=== PATIENT | male | born 1980 | race Caucasian/White ===

== ENCOUNTER 2016-07-19 09:22 | Emergency (ER) | payer BC ==
[2016-07-19] MEDS ORDERED: Sodium Chloride 0.9% 1,000 ML IV SCH (09:45)
--- NOTE | 2016-07-19 09:53 | EDM.PDOC ---
<Yashira Mcfadden - Last Filed: 07/19/16 10:21> ED HPI GI/ABDOMINAL - General Chief Complaint: Abdominal Pain Stated Complaint: STOMACK PAINS ON THE SIDE Time Seen by Provider: 07/19/16 09:38 Source of Information: Reports: Patient History Limitations: Reports: No limitations - History of Present Illness INITIAL COMMENTS - FREE TEXT/NARRATIVE: Bart is a 36 year old male that presents to the ED today with complaints of pain in the left lower quadrant that started 3 days ago and has progressively gotten worse over the last night. According to patient pain is sharp and does not radiate to his back. Pain is worse with movements at times. Rates pain as 3/ 10 laying down in ED at the moment, and 8/10 at its worse. Patient voices has had normal bowel movements and passing gas without difficulty. He voices moves his bowels daily sometimes 2 times daily. Denies nausea and vomiting. Denies fever or chills. Denies urinary complaints, urgency, frequency, burning, and penile discharge. Denies blood in stool or urine. Denies any recent injury or lifting anything heavy. Symptom Onset Date: 07/17/16 Timing/Duration: Reports: Getting worse, Gradual onset Location: LLQ Quality: Reports: other (stabbing pain 3/10 now) Associated Symptoms: Denies: chest pain, back pain, groin pain, constipation, diarrhea, bloody stools, fever/chills, loss of appetite, malaise, nausea/ vomiting - Related Data Allergies/ADRs: Allergies Allergy/AdvReac Type Severity Reaction Status Date / Time Penicillins Allergy Hives Verified 07/19/16 09:32 Home Meds: Home Meds . [No Known Home Meds] 10/03/14 [History] Past Medical History - Past Health History Medical/Surgical History: Denies Medical/Surgical History Social & Family History - Tobacco Use Smoking Status *Q: Never Smoker Second Hand Smoke Exposure: No - Caffeine Use Caffeine Use: Reports: Coffee - Alcohol Use Days Per Week of Alcohol Use: 2 Number of Drinks Per Day: 3 Total Drinks Per Week: 6 - Recreational Drug Use Recreational Drug Use: No ED ROS GENERAL - Review of Systems Review Of Systems: ROS reveals no pertinent complaints other than HPI. ED EXAM, GI/ABD - Physical Exam Exam: See Below Exam Limited By: No limitations General Appearance: alert, WD/WN, no apparent distress Ears: normal external exam, hearing grossly normal Nose: normal inspection Throat/Mouth: Normal inspection, Normal lips, Normal teeth, Normal gums, Normal oropharynx, Normal voice, No airway compromise Head: atraumatic, normocephalic Neck: normal inspection, full range of motion Respiratory/Chest: no respiratory distress, lungs clear, normal breath sounds, no accessory muscle use, chest non-tender Cardiovascular: normal peripheral pulses, regular rate, rhythm, no JVD GI/Abdominal: normal bowel sounds, soft, no organomegaly, no distention, no mass , guarding (to LLQ), other (tender to palpation in LLQ) (Male) Exam: No hernia, Normal inspection, Circumcised. No: Rash, Scrotal swelling, Scrotum tenderness (L), Scrotum tenderness (R), Testicular tenderness (L), Testicular tenderness (R), Urethral discharge Rectal (Males) Exam: Deferred Back Exam: normal inspection, full range of motion Extremities: normal inspection Neurological: alert, oriented, normal cognition, normal gait Psychiatric: normal affect, normal mood Skin Exam: Warm, Dry, Intact, Normal color, No rash Lymphatic: no adenopathy Course - Vital Signs Last Recorded V/S: Last Vital Signs Temp 36.2 C 07/19/16 09:31 Pulse 85 07/19/16 09:31 Resp 16 07/19/16 09:31 BP 117/83 07/19/16 09:31 Pulse Ox 96 07/19/16 09:31 - Orders/Labs/Meds Orders: Active Orders 24 hr Category Date Time Status Abdomen Pelvis wo Cont [CT] Stat Exams 07/19/16 10:20 Taken Sodium Chloride 0.9% [Normal Saline] 1,000 ml Med 07/19/16 09:45 Active IV ASDIRECTED Medication Orders Sodium Chloride (Normal Saline) 1,000 mls @ 999 mls/hr IV ASDIRECTED DARRICK Last Admin: 07/19/16 09:50 Dose: 999 mls/hr Labs: Laboratory Tests 07/19/16 07/19/16 07/19/16 Range/Units 09:47 09:47 09:55 WBC 6.72 (4.0-11.0) K/uL RBC 5.35 (4.50-5.90) M/uL Hgb 15.6 (13.0-17.0) g/dL Hct 47.0 (38.0-50.0) % MCV 87.9 (80.0-98.0) fL MCH 29.2 (27.0-32.0) pg MCHC 33.2 (31.0-37.0) g/dL RDW Std Deviation 41.4 (28.0-62.0) fl RDW Coeff of Clemente 13 (11.0-15.0) % Plt Count 168 (150-400) K/uL MPV 12.70 H (7.40-12.00) fL Neut % (Auto) 53.3 (48.0-80.0) % Lymph % (Auto) 29.5 (16.0-40.0) % [place] % (Auto) 10.6 (0.0-15.0) % Eos % (Auto) 6.0 (0.0-7.0) % Baso % (Auto) 0.6 (0.0-1.5) % Neut # 3.6 (1.4-5.7) K/uL Lymph # 2.0 (0.6-2.4) K/uL [place] # 0.7 (0.0-0.8) K/uL Eos # 0.4 (0.0-0.7) K/uL Baso # 0.0 (0.0-0.1) K/uL Nucleated RBC % 0.0 /100WBC Nucleated RBCs # 0 K/uL Sodium 140 (136-146) mmol/L Potassium 4.6 (3.5-5.1) mmol/L Chloride 109 (98-110) mmol/L Carbon Dioxide 22 (21-31) mmol/L BUN 18 (6.0-23.0) mg/dL Creatinine 1.1 (0.6-1.5) mg/dL Est Cr Clr Drug Dosing 103.86 mL/min Estimated GFR (MDRD) > 60.0 ml/min Glucose 107 (60-110) mg/dL Calcium 9.2 (8.8-10.8) mg/dL Total Bilirubin 0.6 (0.1-1.5) mg/dL AST 21 (5-40) IU/L ALT 36 (8-54) IU/L Alkaline Phosphatase 99 (40-150) Total Protein 7.5 (6.0-8.0) g/dL Albumin 4.4 (3.5-5.0) g/dL Globulin 3.1 (2.0-3.5) g/dL Albumin/Globulin Ratio 1.4 (1.3-2.8) Amylase 101 H (10-90) U/L Lipase 18 (7-80) U/L Urine Color YELLOW Urine Appearance CLEAR Urine pH 6.0 (5.0-8.0) Ur Specific [place] >= 1.030 (1.001-1.035) Urine Protein NEGATIVE (NEGATIVE) mg/dL Urine Glucose (UA) NEGATIVE (NEGATIVE) mg/dL Urine Ketones NEGATIVE (NEGATIVE) mg/dL Urine Occult Blood NEGATIVE (NEGATIVE) Urine Nitrite NEGATIVE (NEGATIVE) Urine Bilirubin NEGATIVE (NEGATIVE) Urine Urobilinogen 0.2 (<2.0) EU/dL Ur Leukocyte Esterase NEGATIVE (NEGATIVE) Urine RBC NONE SEEN (0-2/HPF) Urine WBC NONE SEEN (0-5/HPF) Ur Epithelial Cells RARE (NONE-FEW) Urine Bacteria NOT SEEN (NEGATIVE) Meds: Medications Generic Name Dose Route Start Last Admin Trade Name Freq PRN Reason Stop Dose Admin Sodium Chloride 1,000 mls @ 999 mls/hr 07/19/16 09:45 07/19/16 09:50 Normal Saline IV 999 mls/hr ASDIRECTED DARRICK Administration Departure - Departure Disposition: Home, Self-Care 01 Clinical Impression: Epiploic appendagitis Forms: ED Department Discharge Additional Instructions: Cipro 500 by mouth twice a day #20 no refill Return if symptoms persist or worsen or new concerning symptomatology develops Followup with primary care in 2 weeks [facility] [address] [place] [address] The following information is given to patients seen in the emergency department who are being discharged to home. This information is to outline your options for follow-up care. We provide all patients seen in our emergency department with a follow-up referral. The need for follow-up, as well as the timing and circumstances, are variable depending upon the specifics of your emergency department visit. If you don't have a primary care physician on staff, we will provide you with a referral. We always advise you to contact your personal physician following an emergency department visit to inform them of the circumstance of the visit and for follow-up with them and/or the need for any referrals to a consulting specialist. The emergency department will also refer you to a specialist when appropriate. This referral assures that you have the opportunity for follow-up care with a specialist. All of these measure are taken in an effort to provide you with optimal care, which includes your follow-up. Under all circumstances we always encourage you to contact your private physician who remains a resource for coordinating your care. When calling for follow-up care, please make the office aware that this follow-up is from your recent emergency room visit. If for any reason you are refused follow-up, please contact the [facility] emergency department at and asked to speak to the emergency department charge nurse. - My Orders Last 24 Hours: My Active Orders 07/19/16 10:20 Abdomen Pelvis wo Cont [CT] Stat - Assessment/Plan Last 24 Hours: My Active Orders 07/19/16 10:20 Abdomen Pelvis wo Cont [CT] Stat <Edson Multani - Last Filed: 07/19/16 11:27> ED HPI GI/ABDOMINAL - History of Present Illness INITIAL COMMENTS - FREE TEXT/NARRATIVE: i have seen and examined the patient agree with above Assessment epiploic appendage diabetes versus mild diverticulitis Plan Cipro 500 by mouth twice a day #20 no refill Return if symptoms persist or worsen or new concerning symptomatology develops Followup with primary care in 2 weeks Departure - Departure Time of Disposition: 11:26 Condition: good
[2016-07-19 10:14] LABS: CHLORIDE,CL 109 mmol/L (98-110); SODIUM,NA 140 mmol/L (136-146)
[2016-07-19 11:50] VITALS: BP 116/85
--- NOTE | 2016-07-21 17:26 | CT ---
EXAM DATE: 07/19/16 PATIENT'S AGE: 36 Patient: JADA GILMA Facility: [place], [place] Site . Site : 1980 Study: CT Abdomen/Pelvis [id number]/4/2017 10:50:27 AM Ordering Physician: Doctor Ahuja Final Report: HISTORY: Left-sided abdominal pain. TECHNIQUE: Noncontrast CT of the abdomen and pelvis. COMPARISON: No prior. FINDINGS: There is no focal liver parenchymal abnormality. Gallbladder does not appear overly distended. Spleen size within normal limits. Adrenal glands are normal. No focal pancreatic abnormality or peripancreatic inflammatory change. There is no hydronephrosis. No obstructive urinary calculus. No renal mass. Minor perinephric stranding. Urinary bladder is not well distended and not well evaluated by CT. . No small bowel obstruction. There is a circumscribed fat attenuation lesion within the left anterior upper pelvis, anterior to the distal descending- proximal sigmoid colonic junction as seen on image #107. There is mild adjacent haziness of fat. This may indicate self limiting process such as epiploic appendagitis or an area of segmental omental inflammation. There is no diverticulitis. No appendicitis. No abdominal pelvic fluid collection. No free air. No aortic aneurysm. No technically enlarged abdominal lymph nodes. Prior umbilical hernia repair. . The 10 mm mildly sclerotic lesion involving the left iliac bone on image #115 of series 201 is nonspecific. As an isolated finding this is more likely benign. . 4 mm right lower lobe pulmonary nodule image #15. 4 mm right lower lobe pulmonary nodule image #14. 3 mm left lower lobe pulmonary nodule image #1. There are few additional subpleural nodules. IMPRESSION: 1. Circumscribed fat attenuation lesion within the left anterior upper pelvis, anterior to the distal descending-proximal sigmoid colonic junction, with mild adjacent haziness of fat. This may indicate self limiting process such as epiploic appendagitis or an area of segmental omental inflammation. 2. No diverticulitis or appendicitis. 3. Prior umbilical hernia repair. 4. Several nodules within the lung bases. Recommend followup chest CT in 6 months. Dictated by Aleksandar Draper MD @ 07/19/2016 11:18:44 AM Dictated by: Aleksandar Draper MD @ 07/19/2016 11:18:51 (Electronic Signature) Report Signed by Proxy and Original Signed Document filed in the Medical Record. LAQUITA
== END 2016-07-19 11:45 | disposition home or self-care (01) ==
LOC: MW.ED 09:22
DX: K63.89 Other specified diseases of intestine (principal); Z88.0 Allergy status to penicillin
CPT/HCPCS: 36415; 74176; 80053; 81001; 82150; 83690; 85025; 96360; 99284; J7040; 99283

== ENCOUNTER 2017-06-07 20:23 | Emergency (ER) | payer BC ==
[2017-06-07] MEDS ORDERED: Albuterol/Ipratropium 3.0-0.5 MG/3 ML Neb Soln NEB ONE (22:03)
[2017-06-07] MEDS ORDERED: Levofloxacin 500 MG Tab PO ONE (22:04)
--- NOTE | 2017-06-07 22:13 | EDM.PDOC ---
ED HPI GENERAL MEDICAL PROBLEM - General Chief Complaint: General Stated Complaint: FLU LIKE Time Seen by Provider: 06/07/17 22:11 Source of Information: Reports: Patient - History of Present Illness INITIAL COMMENTS - FREE TEXT/NARRATIVE: HISTORY AND PHYSICAL: History of present illness: Patient presents with fever and general malaise since yesterday noon he's been coughing for 1-2 weeks prior No nausea vomiting chills sweats no chest pain shortness breath headache dizziness or palpitation no bowel or urine symptoms Review of systems: As per history of present illness and below otherwise all systems reviewed and negative. Past medical history: As per history of present illness and as reviewed below otherwise noncontributory. Surgical history: As per history of present illness and as reviewed below otherwise noncontributory. Social history: No reported history of drug or alcohol abuse. Family history: As per history of present illness and as reviewed below otherwise noncontributory. Physical exam: HEENT: Atraumatic, normocephalic, pupils reactive, negative for conjunctival pallor or scleral icterus, mucous membranes moist, throat clear, neck supple, nontender, trachea midline. Lungs: Clear to auscultation, breath sounds equal bilaterally, chest nontender. Heart: S1S2, regular, negative for clicks, rubs, or JVD. Abdomen: Soft, nondistended, nontender. Negative for masses or hepatosplenomegaly. Negative for costovertebral tenderness. Pelvis: Stable nontender. Genitourinary: Deferred. Rectal: Deferred. Extremities: Atraumatic, negative for cords or calf pain. Neurovascular unremarkable. Neuro: Awake, alert, oriented. Cranial nerves II through XII unremarkable. Cerebellum unremarkable. Motor and sensory unremarkable throughout. Exam nonfocal. Diagnostics: [Chest 2 views Influenza/strep ] Therapeutics: [DuoNeb Levaquin 500 mg by mouth now Levaquin 500 mg by mouth daily #10 no refill ProAir HFA 48 hours off work Return if symptoms persist or worsen Rest fluids nutrition ] Impression: [Pneumonia] Definitive disposition and diagnosis as appropriate pending reevaluation and review of above. Headache Pain Score (Numeric/FACES): 7 - Related Data Allergies Allergy/AdvReac Type Severity Reaction Status Date / Time Penicillins Allergy Hives Verified 06/07/17 20:40 Home Meds: Home Meds . [No Known Home Meds] 10/03/14 [History] Past Medical History - Past Health History Medical/Surgical History: Denies Medical/Surgical History Social & Family History - Tobacco Use Smoking Status *Q: Never Smoker Second Hand Smoke Exposure: No - Caffeine Use Caffeine Use: Reports: None - Alcohol Use Days Per Week of Alcohol Use: 2 Number of Drinks Per Day: 3 Total Drinks Per Week: 6 - Recreational Drug Use Recreational Drug Use: No ED ROS GENERAL - Review of Systems Review Of Systems: ROS reveals no pertinent complaints other than HPI. ED EXAM, GENERAL - Physical Exam Exam: See Below Course - Vital Signs Last Recorded V/S: Last Vital Signs Temp 104.4 F H 06/07/17 20:39 Pulse 115 H 06/07/17 20:39 Resp 18 06/07/17 20:39 BP 132/83 06/07/17 20:39 Pulse Ox 95 06/07/17 20:39 - Orders/Labs/Meds Orders: Active Orders 24 hr Category Date Time Status RT Aerosol Therapy [RC] ASDIRECTED Care 06/07/17 22:04 Active Chest 2V [CR] Stat Exams 06/07/17 20:40 Taken CULTURE STREP A CONFIRMATION [RM] Stat Lab 06/07/17 20:58 Results STREP SCRN A RAPID W CULT CONF [RM] Stat Lab 06/07/17 20:58 Results Meds: Medications Discontinued Medications Generic Name Dose Route Start Last Admin Trade Name Lopez PRN Reason Stop Dose Admin Albuterol/Ipratropium 3 ml 06/07/17 22:03 Duoneb 3.0-0.5 Mg/3 Ml NEB 06/07/17 22:04 ONETIME ONE Levofloxacin 500 mg 06/07/17 22:04 Levaquin PO 06/07/17 22:05 ONETIME ONE Departure - Departure Time of Disposition: 22:12 Disposition: Home, Self-Care 01 Condition: Good Clinical Impression: Pneumonia - Discharge Information Referrals: PCP,None [Primary Care Provider] - Additional Instructions: Medication as prescribed Return if symptoms persist or worsen or new concerning symptoms develop 48 hours off work for rest fluids nutrition With primary care in 2 weeks sooner as needed [facility] - Primary Care [address] [place] [id number] The following information is given to patients seen in the emergency department who are being discharged to home. This information is to outline your options for follow-up care. We provide all patients seen in our emergency department with a follow-up referral. The need for follow-up, as well as the timing and circumstances, are variable depending upon the specifics of your emergency department visit. If you don't have a primary care physician on staff, we will provide you with a referral. We always advise you to contact your personal physician following an emergency department visit to inform them of the circumstance of the visit and for follow-up with them and/or the need for any referrals to a consulting specialist. The emergency department will also refer you to a specialist when appropriate. This referral assures that you have the opportunity for follow-up care with a specialist. All of these measure are taken in an effort to provide you with optimal care, which includes your follow-up. Under all circumstances we always encourage you to contact your private physician who remains a resource for coordinating your care. When calling for follow-up care, please make the office aware that this follow-up is from your recent emergency room visit. If for any reason you are refused follow-up, please contact the [facility] emergency department at and asked to speak to the emergency department charge nurse. - My Orders Last 24 Hours: My Active Orders 06/07/17 20:40 Chest 2V [CR] Stat 06/07/17 20:58 CULTURE STREP A CONFIRMATION [RM] Stat STREP SCRN A RAPID W CULT CONF [RM] Stat 06/07/17 22:04 RT Aerosol Therapy [RC] ASDIRECTED - Assessment/Plan Last 24 Hours: My Active Orders 06/07/17 20:40 Chest 2V [CR] Stat 06/07/17 20:58 CULTURE STREP A CONFIRMATION [RM] Stat STREP SCRN A RAPID W CULT CONF [RM] Stat 06/07/17 22:04 RT Aerosol Therapy [RC] ASDIRECTED
[2017-06-08 02:00] VITALS: BP 127/79
--- NOTE | 2017-06-08 19:40 | CR ---
EXAM DATE: 06/07/17 PATIENT'S AGE: 37 Patient: TAVISH GILMA Facility: [place], [place] Site . Site : 1980 Study: XRay Chest [id number]/21/2018 9:52:42 PM Ordering Physician: Chen Sandhu Final Report: INDICATION: Pain. Short of breath. TECHNIQUE: PA and lateral views of the chest. COMPARISON: None. FINDINGS: Cardiac, mediastinal and hilar contours appear normal. Normal pulmonary vasculature. There are patchy left basilar airspace opacities concerning for pneumonia. No pleural fluid or pneumothorax. IMPRESSION: Left basilar airspace opacities, concerning for pneumonia. Dictated by Aniket Phoenix MD @ 06/07/2017 9:58:53 PM Dictated by: Aniket Phoenix MD @ 06/07/2017 21:58:58 (Electronic Signature) Report Signed by Proxy. LAQUITA
== END 2017-06-07 22:29 | disposition home or self-care (01) ==
LOC: MW.ED 20:23
DX: J18.9 Pneumonia, unspecified organism (principal); Z88.0 Allergy status to penicillin
CPT/HCPCS: 71046; 87081; 87804; 87880; 94640; 99284; A9270; 99283

== ENCOUNTER 2017-06-08 17:34 | Emergency (ER) | payer BC ==
--- NOTE | 2017-06-08 17:52 | EDM.PDOC ---
ED HPI GENERAL MEDICAL PROBLEM - General Chief Complaint: Respiratory Problem Stated Complaint: HEADACHE/PNEUMONIA Time Seen by Provider: 06/08/17 17:46 - History of Present Illness INITIAL COMMENTS - FREE TEXT/NARRATIVE: HISTORY AND PHYSICAL: History of present illness: Patient 37-year-old male was diagnosed yesterday with pneumonia presents now with headache he's taking Motrin with no improvement he denies vomiting diarrhea denies numbness weakness visual disturbance denies trauma neck pain or stiffness or other concern Review of systems: As per history of present illness and below otherwise all systems reviewed and negative. Past medical history: As per history of present illness and as reviewed below otherwise noncontributory. Surgical history: As per history of present illness and as reviewed below otherwise noncontributory. Social history: No reported history of drug or alcohol abuse. Family history: As per history of present illness and as reviewed below otherwise noncontributory. Physical exam: HEENT: Atraumatic, normocephalic, pupils reactive, negative for conjunctival pallor or scleral icterus, mucous membranes moist, throat clear, neck supple, nontender, trachea midline. Lungs: Coarse, breath sounds equal bilaterally, chest nontender. Heart: S1S2, regular, negative for clicks, rubs, or JVD. Abdomen: Soft, nondistended, nontender. Negative for masses or hepatosplenomegaly. Negative for costovertebral tenderness. Pelvis: Stable nontender. Genitourinary: Deferred. Rectal: Deferred. Extremities: Atraumatic, negative for cords or calf pain. Neurovascular unremarkable. Neuro: Awake, alert, oriented. Cranial nerves II through XII unremarkable. Cerebellum unremarkable. Motor and sensory unremarkable throughout. Exam nonfocal. Diagnostics: CT brain Therapeutics: Toradol 60 mg IM Impression: #1 Pneumonia #2 cephalgia Definitive disposition and diagnosis as appropriate pending reevaluation and review of above. - Related Data Allergies Allergy/AdvReac Type Severity Reaction Status Date / Time Penicillins Allergy Hives Verified 06/08/17 17:48 Home Meds: Home Meds . [No Known Home Meds] 10/03/14 [History] Past Medical History - Past Health History Medical/Surgical History: Denies Medical/Surgical History Social & Family History - Tobacco Use Smoking Status *Q: Never Smoker Second Hand Smoke Exposure: No - Caffeine Use Caffeine Use: Reports: None - Alcohol Use Days Per Week of Alcohol Use: 2 Number of Drinks Per Day: 3 Total Drinks Per Week: 6 - Recreational Drug Use Recreational Drug Use: No ED ROS GENERAL - Review of Systems Review Of Systems: ROS reveals no pertinent complaints other than HPI. ED EXAM, GENERAL - Physical Exam Exam: See Below (See dictation) Course - Vital Signs Last Recorded V/S: Last Vital Signs Temp 37.7 C 06/08/17 17:49 Pulse 108 H 06/08/17 17:49 Resp 18 06/08/17 17:49 BP 119/87 06/08/17 17:49 Pulse Ox 94 L 06/08/17 17:49 - Orders/Labs/Meds Orders: Active Orders 24 hr Category Date Time Status Head wo Cont [CT] Stat Exams 06/08/17 17:56 Taken Meds: Medications Discontinued Medications Generic Name Dose Route Start Last Admin Trade Name Freq PRN Reason Stop Dose Admin Ketorolac Tromethamine 60 mg 06/08/17 18:39 06/08/17 18:43 Toradol IM 06/08/17 18:40 60 mg ONETIME ONE Administration Departure - Departure Time of Disposition: 18:53 Disposition: Home, Self-Care 01 Condition: Good Clinical Impression: Pneumonia, Cephalgia - Discharge Information Referrals: PCP,None [Primary Care Provider] - Forms: ED Department Discharge Additional Instructions: The following information is given to patients seen in the emergency department who are being discharged to home. This information is to outline your options for follow-up care. We provide all patients seen in our emergency department with a follow-up referral. The need for follow-up, as well as the timing and circumstances, are variable depending upon the specifics of your emergency department visit. If you don't have a primary care physician on staff, we will provide you with a referral. We always advise you to contact your personal physician following an emergency department visit to inform them of the circumstance of the visit and for follow-up with them and/or the need for any referrals to a consulting specialist. The emergency department will also refer you to a specialist when appropriate. This referral assures that you have the opportunity for followup care with a specialist. All of these measure are taken in an effort to provide you with optimal care, which includes your followup. Under all circumstances we always encourage you to contact your private physician who remains a resource for coordinating your care. When calling for followup care, please make the office aware that this follow-up is from your recent emergency room visit. If for any reason you are refused follow-up, please contact the [facility] emergency department at and asked to speak to the emergency department charge nurse. The new current meds follow-up by the medical doctor as needed as discussed and return as needed as discussed - My Orders Last 24 Hours: My Active Orders 06/08/17 17:56 Head wo Cont [CT] Stat - Assessment/Plan Last 24 Hours: My Active Orders 06/08/17 17:56 Head wo Cont [CT] Stat
[2017-06-08] MEDS ORDERED: Ketorolac 60 MG/2 ML SDV IM ONE (18:39)
[2017-06-08 19:07] VITALS: BP 109/85
--- NOTE | 2017-06-09 14:25 | CT ---
EXAM DATE: 06/08/17 PATIENT'S AGE: 37 Patient: JADA DILLARD Facility: [place] [place] Site . Site : 1980 Study: CT Head [id number]/22/2018 6:14:32 PM Ordering Physician: Queenie Rao Final Report: INDICATION: Headache. TECHNIQUE: CT head without i.v. contrast. COMPARISON: None FINDINGS: CSF spaces: Within normal limits for age. Brain parenchyma: The brain parenchyma is normal in appearance with preservation of the bermudez-white differentiation. No sign of mass, hemorrhage, or midline shift seen. Skull base and calvarium: The visualized paranasal sinuses are well aerated. The mastoid air cells are clear. The visualized orbits are grossly unremarkable. No skull fractures are seen. IMPRESSION: 1. No evidence of acute infarction, intracranial hemorrhage, or mass effect seen. Dictated by Chiki Rios MD @ 06/08/2017 6:38:19 PM Dictated by: Chiki Rios MD @ 06/08/2017 18:38:49 (Electronic Signature) Report Signed by Proxy. [facility]OSPITALAurea
== END 2017-06-08 19:05 | disposition home or self-care (01) ==
LOC: MW.ED 17:34
DX: J18.9 Pneumonia, unspecified organism (principal); R51 Headache; Z88.0 Allergy status to penicillin
CPT/HCPCS: 70450; 96372; 99284; J1885; 99283

== ENCOUNTER 2018-11-26 19:27 | Emergency (ER) | payer BC ==
[2018-11-26 19:43] VITALS: BP 118/72
[2018-11-26] MEDS ORDERED: Ketorolac 60 MG/2 ML SDV IM ONE (19:52)
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
--- NOTE | 2018-11-26 20:26 | CR ---
Indication: Rolled ankle Technique: Right ankle 3 views. Comparison: None Findings: Bones: Alignment is normal. No fractures or bone lesions. Joint spaces: Unremarkable. Soft tissues: Prominent lateral soft tissue swelling. Impression: Prominent lateral soft tissue swelling without evidence of fracture. Dictated by Angelo Caballero MD @ Nov 26 2018 8:20PM Signed by Dr. Angelo Caballero @ Nov 26 2018 8:23PM
== END 2018-11-26 20:45 | disposition home or self-care (01) ==
LOC: MW.ED 19:27
DX: S93.401A Sprain of unspecified ligament of right ankle, initial encounter (principal); Z88.0 Allergy status to penicillin; X50.1XXA Overexertion from prolonged static or awkward postures, initial encounter
CPT/HCPCS: 73610; 96372; 99283; J1885